=== PATIENT | female | born 1985 | race African-American/Black ===

== ENCOUNTER 2018-05-27 23:10 | Emergency (ER) | payer BC, MEDICAID ==
[~2018-05-27] VITALS: Ht 182.9 cm; Wt 68.5 kg
[2018-05-27] MEDS ORDERED: NKM (23:19)
[2018-05-27 23:20] VITALS: BP 123/78
--- NOTE | 2018-05-27 23:38 | Emergency Room Report ---
History of Present Illness General Chief Complaint: Abdominal Pain Source: Patient Present Illness HPI Patient is a 32-year-old female who presented after increased right-sided abdominal pain. Patient was having increased pain to the right flank. She states that the pain is constant in nature. She reports having worsening pain with movement and deep breath. She reports being approximately 14 weeks. She is . Patient denies any fever or vomiting. She denies recent trauma. Allergies: Coded Allergies: No Known Allergies (Unverified , 05/27/18) Patient History Past Medical History: see triage record Last Menstrual Period: January Reviewed Nursing Documentation: PMH: Agreed; PSxH: Agreed Nursing Documentation-PMH Hx Cardiac Problems: Yes - RAPID HEART RATE,VALVE PROBLEM Review of Systems All Other Systems: negative except mentioned in HPI Physical Exam Vital Signs Date Time Temp Pulse Resp B/P (MAP) Pulse Ox O2 Delivery O2 Flow Rate FiO2 05/27/18 23:14 98.1 103 16 127/81 97 Room Air 98.1 Sp02 EP Interpretation: reviewed, normal General Appearance: normal inspection, well appearing, no apparent distress, alert, GCS 15 Head: atraumatic ENT: normal ENT inspection, hearing grossly normal, normal voice Neck: normal inspection, full range of motion, supple, no bony tend Respiratory: normal inspection, lungs clear, normal breath sounds, no respiratory distress, no retraction, no wheezing Cardiovascular #1: regular rate, rhythm, no edema Gastrointestinal: normal inspection, normal bowel sounds, non tender, soft, no guarding, no hernia Genitourinary: no CVA tenderness Musculoskeletal: normal inspection, back normal, normal range of motion Neurologic: normal inspection, alert, oriented x3, responsive, first assistant manager III-XII nml as tested, speech normal Psychiatric: normal inspection, judgement/insight normal, mood/affect normal Skin: normal inspection, normal color, no rash Medical Decision Making ER Course Patient presented for abdominal pain. Differential diagnoses included ischemic bowel, appendicitis, perforated viscus, abdominal aortic aneurysm, inferior myocardial infarction, viral gastroenteritis, Ectopic , pulmonary embolism among others. Last Vital Signs Date Time Temp Pulse Resp B/P (MAP) Pulse Ox O2 Delivery O2 Flow Rate FiO2 05/27/18 23:14 98.1 103 16 127/81 97 Room Air 98.1 Flakito Brown MD May 27, 2018 23:38
[2018-05-28 00:27] LABS: APPEARANCE,URINE CLEAR; BILIRUBIN, URINE NEGATIVE (NEGATIVE); COLOR,URINE PALE YELLOW; GLUCOSE, URINE (UA) NEGATIVE (NEGATIVE); KETONES,URINE NEGATIVE (NEGATIVE); LEUKOCYTE ESTERASE ,URINE NEGATIVE (NEGATIVE); NITRITE,URINE NEGATIVE (NEGATIVE); PH,URINE 6 (4.5-8.0); PROTEIN,URINE NEGATIVE (NEGATIVE); UROBILINOGEN,URINE NORMAL MG/DL (0.0-1.0)
[2018-05-28 00:33] LABS: ANION GAP 9 mmol/L (5-15); BLOOD UREA NITROGEN 9 mg/dL (7-18); CALCIUM 9.2 MG/DL (8.5-10.1); CARBON DIOXIDE 23 MMOL/L (21-32); CHLORIDE 105 MMOL/L (98-107); CREATININE 0.6 MG/DL (0.55-1.30); POTASSIUM 3.8 MMOL/L (3.5-5.1); SODIUM 137 MMOL/L (136-145)
[2018-05-28 00:37] LABS: ALANINE AMINOTRANSFERASE 13 U/L (12-78); ALBUMIN 2.9 G/DL (3.4-5.0); ALBUMIN/GLOBULIN RATIO 0.7 (1.0-2.7); ALKALINE PHOSPHATASE 39 U/L (46-116); ASPARTATE AMINO TRANSFERASE 12 U/L (15-37); BILIRUBIN,TOTAL 0.2 MG/DL (0.2-1.0)
[2018-05-28] MEDS ORDERED: Acetaminophen 500mg (ES) tab ORAL ONE ×2 (01:15→01:29)
[2018-05-28] MEDS ORDERED: BENADRYL25 MG ORAL (01:25)
[2018-05-28 01:30] VITALS: BP 121/74
[2018-05-28 01:35] VITALS: BP 121/74
--- NOTE | 2018-05-28 12:10 | Diagnostic Imaging Report ---
Indication: Pelvic pain, patient Technique: Transabdominal images of the gravid uterus Comparison: none Findings: There is a single live intrauterine . This demonstrates positive heart activity, heart rate 193 bpm. Anterior fundal placenta, clears the internal cervical os. No subchorionic hemorrhage measurements as follows: Biparietal diameter 3 cm, 15 weeks 4 days; head circumference 11.3 cm, 15 weeks 3 days; abdominal circumference 92 mm, 15 weeks 2 days; femur length 19 mm, 15 weeks 4 days. Estimated gestational age by average of ultrasound measurements is 15 weeks 3 days. Estimated gestational age by dates is 15 weeks 5 days. Estimated date of delivery is 11/16/2018 Assessment of anatomy is limited, due to very early stage of , and emergent nature of the exam. Normal three-vessel cord, urinary bladder, spine are demonstrated. The kidneys and stomach are visualized. Multiple fibroids are seen in the myometrium. Largest measures 5 cm diameter Impression: 15 week 3 day single live intrauterine Multiple fibroids demonstrated
--- NOTE | 2018-05-28 12:10 | Diagnostic Imaging Report ---
Indication: Right flank pain Technique: Nelson-scale and duplex images of the upper abdomen were obtained Comparison: none Findings: Gallbladder is unremarkable, without stones, wall thickening, nor pericholecystic fluid. Sonographic De Paz's sign is negative. Common bile duct measures 2 mm in diameter. No intrahepatic biliary ductal dilatation. Liver demonstrates normal echogenicity, no focal abnormality. Portal vein and hepatic veins are patent. Pancreas is unremarkable. Spleen is unremarkable. Left kidney measures 9.2 cm in length. Right kidney measures 9.6 cm length. Both kidneys demonstrate normal echogenicity. There is no hydronephrosis. No focal abnormality . Non-aneurysmal abdominal aorta . Impression: Negative
== END 2018-05-28 01:35 | disposition home or self-care (01) ==
LOC: EMR 23:48
DX: R10.9 Unspecified abdominal pain (principal); O34.12 Maternal care for benign tumor of corpus uteri, second trimester; D25.9 Leiomyoma of uterus, unspecified; Z3A.15 15 weeks gestation of pregnancy
CPT/HCPCS: 36415; 76700; 76805; 80053; 81003; 83690; 84702; 85025; 85379; 85610; 85730; 86850; 86900; 86901; 96360; 99284